=== PATIENT | female | born 1940 | race Caucasian/White ===

== ENCOUNTER 2018-07-30 08:36 | Observation (INO) | payer MEDICARE, BC ==
[~2018-07-30] VITALS: Ht 165.1 cm; Wt 61.5 kg
[2018-08-03] VITALS (23 sets, daily range): BP systolic 109–141; BP diastolic 63–82; PULSE 74–92; TEMP 98.7
[2018-08-03] MEDS ORDERED: ULTRAM 50MG TAB50 MG PO (08:59)
[2018-08-03] MEDS ORDERED: CARDIZEM120 MG PO (09:00)
[2018-08-03] MEDS ORDERED: COZAAR 50MG50 MG/TAB PO (09:00)
[2018-08-03] MEDS ORDERED: WELLBUTRIN 100100 MG PO ×2 (09:01)
[2018-08-03] MEDS ORDERED: VITAMIN C500 MG PO (09:02)
[2018-08-03] MEDS ORDERED: VITAMIN D31000 I1 PO (09:02)
[2018-08-03] MEDS ORDERED: ADVIL PM 38 MG-1 TAB PO (09:02)
[2018-08-03] MEDS ORDERED: VITAMIN E1000 U/CAP PO (09:03)
[2018-08-03] MEDS ORDERED: PRILOSEC 20MG20 MG PO (09:04)
[2018-08-03] MEDS ORDERED: MAGNESIUM250 M1 PO (09:04)
[2018-08-03] MEDS ORDERED: ASPIRIN E.C. 8181 MG PO (09:05)
[2018-08-03] MEDS ORDERED: ALEVE 220MG220 MG PO (09:05)
--- NOTE | 2018-08-03 09:21 | NUR ---
TO RM 8 PER WC ABLE TO TRANSFER WITH ASSIST TO BED. ASSISTED PATIENT IN HOSPITAL GOWN. ALERT ORIENTED X3, VERBALIZED UNDERSTANDING AND SIGNED CONSENT. SIGNED CONSENT FOR GUIDE WIRE PLACEMENT TODAY AND CONSENT FOR LEFT PERCUTANEOUS NEPHROLITHOTOMY.
--- NOTE | 2018-08-03 09:25 | NUR ---
CALL LIGHT IN REACH AT BEDSIDE
--- NOTE | 2018-08-03 10:50 | NUR ---
PT BROUGHT INTO CT ROOM AND PLACED ON THE TABLE. MONITORING EQUIPMENT APPLIED. SCANS DONE AND SENT TO DOCTOR. PT MADE COMFORTABLE.
--- NOTE | 2018-08-03 11:00 | NUR ---
PT REPORTED PAIN AND WAS GIVEN 0.5 VERSED AND 25 MCG FENTANYL IVSP. VSS. PT RESTING
--- NOTE | 2018-08-03 11:05 | NUR ---
PT DOING WELL.
--- NOTE | 2018-08-03 11:25 | NUR ---
PT DOING WELL.
--- NOTE | 2018-08-03 11:30 | NUR ---
PT WAS GIVEN 0.5 MG VERSED FOR ANXIETY CONTROL/PAIN
--- NOTE | 2018-08-03 11:40 | NUR ---
PT WAS GIVEN 25 MCG OF FENTANYL FOR PAIN
--- NOTE | 2018-08-03 12:00 | NUR ---
PT WAS GIVEN 0.5 MG VERSED
--- NOTE | 2018-08-03 12:15 | NUR ---
PT WAS GIVE3N 0.5 VERSED AND25 MCG FENTANYL FOR DISCOMFORT. PT STATES HER FIBROMYALGIA WAS AACTING UP.
--- NOTE | 2018-08-03 12:30 | NUR ---
PT GIVEN 25 MCG FENTANYL BEFORE SHE WAS TRANSFERED TO [facility].
--- NOTE | 2018-08-03 12:35 | NUR ---
REPORT CALLED TO ANDRÉS ONEILL [facility].
--- NOTE | 2018-08-03 14:53 | NUR ---
PT WAITING FOR DR. DELACRUZ NO ORDERS PT MAY GO HOME PER DR. RODRÍGUEZ WHEN READY OR WAIT UNTIL HE GETS HERE TO TALK WITH THEM. REPORT TO JILLIAN ONEILL.
--- NOTE | 2018-08-03 15:31 | NUR ---
The patient was switched from inpatient status to observation. SW and stoneworker met with the patient and patient's and presented and explained the SIGALA Form. The patient verbalized understanding, signed, and she was provided a copy.
--- NOTE | 2018-08-03 18:36 | NUR ---
Discharge instructions reviewed with patient and spouse, verbalized understanding. Discharged via wheelchair to auto/home with family at 1805.
== END 2018-08-03 18:05 | disposition home or self-care (01) ==
LOC: SURG 08-03 07:30 → INPTSU 08-03 07:50 → SURG 08-03 07:50 → EDSTATUS 08-03 10:00 → COL.RAD 08-03 10:00 → SURG 08-03 10:00
PROVIDERS: ADMIT Urology
DX: N39.0 Urinary tract infection, site not specified (principal); J45.909 Unspecified asthma, uncomplicated; I48.92 Unspecified atrial flutter; F32.9 Major depressive disorder, single episode, unspecified; E11.9 Type 2 diabetes mellitus without complications; M79.7 Fibromyalgia; I10 Essential (primary) hypertension; K58.9 Irritable bowel syndrome, unspecified; M19.90 Unspecified osteoarthritis, unspecified site; Z90.49 Acquired absence of other specified parts of digestive tract; Z90.710 Acquired absence of both cervix and uterus; Z79.82 Long term (current) use of aspirin; Z88.8 Allergy status to other drugs, medicaments and biological substances; Z88.2 Allergy status to sulfonamides; Z88.1 Allergy status to other antibiotic agents; Z83.3 Family history of diabetes mellitus; Z82.49 Family history of ischemic heart disease and other diseases of the circulatory system; Z80.9 Family history of malignant neoplasm, unspecified; Z96.651 Presence of right artificial knee joint; Z53.8 Procedure and treatment not carried out for other reasons
CPT/HCPCS: G0378; G0379; J2250; J2543; J3010